=== PATIENT | female | born 1995 | race Two or more races ===

== ENCOUNTER 2019-04-11 08:16 | Emergency (ER) | payer OTHER ==
[~2019-04-11] VITALS: Ht 162.6 cm; Wt 75.0 kg
[2019-04-11] MEDS ORDERED: TRAMADOL HYDROC50 MG PO (11:17)
[2019-04-11] MEDS ORDERED: IBUPROFEN600 MG PO (11:17)
[2019-04-11] MEDS ORDERED: FLEXERIL PO (11:17)
[2019-04-11 11:50] VITALS: BP 112/64
== END 2019-04-11 11:55 | disposition home or self-care (01) | DRG 552 ==
LOC: ED 08:16
DX: S16.1XXA Strain of muscle, fascia and tendon at neck level, initial encounter (principal); S00.83XA Contusion of other part of head, initial encounter; S29.012A Strain of muscle and tendon of back wall of thorax, initial encounter; F17.290 Nicotine dependence, other tobacco product, uncomplicated; V49.40XA Driver injured in collision with unspecified motor vehicles in traffic accident, initial encounter

== ENCOUNTER 2021-11-10 22:13 | Emergency (ER) | payer OTHER ==
[~2021-11-10] VITALS: Ht 162.6 cm
[~2021-11-10 22:13] MED LIST: FLEXERIL PO; IBUPROFEN600 MG PO; TRAMADOL HYDROC50 MG PO
== END 2021-11-10 22:47 | disposition left against medical advice (07) | DRG 605 ==
LOC: ED 22:13
DX: S20.311A Abrasion of right front wall of thorax, initial encounter (principal); S10.91XA Abrasion of unspecified part of neck, initial encounter; F41.9 Anxiety disorder, unspecified; F17.200 Nicotine dependence, unspecified, uncomplicated; V48.5XXA Car driver injured in noncollision transport accident in traffic accident, initial encounter; Z91.19 Patient's noncompliance with other medical treatment and regimen